=== PATIENT | male | born 1950 | race Caucasian/White ===

== ENCOUNTER 2017-02-10 11:48 | Emergency (ER) | payer MEDICARE ==
[2017-02-10 15:03] VITALS: BP 127/71
--- NOTE | 2017-02-10 15:05 | UC ---
Laceration HPI - HPI Summary HPI Summary: 66 male presents to with complaints of laceration to right cheek that occurred this morning after accidentally rolling out of bed hitting the corner of night stand. Denies any other complaints at this time. No headache, bleeding is controlled. No concern for head injury. No LOC. Minimal swelling and tenderness to area. No problems with vision. Believes last tetanus was less than 5 years ago when it had to be updated. No other complaints at this time. No PMHx. 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 - History Of Current Complaint Chief Complaint: UCLaceration Stated Complaint: RY EYE LACERATION Time Seen by Provider: 02/10/17 14:28 Hx Obtained From: Patient Laceration Location: Face - right zygomatic arch area, right cheek Mechanism Of Injury: Blunt Trauma Onset/Duration: Sudden Onset Severity: Mild Pain Intensity: 3 Pain Scale Used: 0-10 Numeric Aggravating Factors: Nothing Facial Trauma: 1 - laceration - Allergies/Home Medications Allergies/Adverse Reactions: Allergies Allergy/AdvReac Type Severity Reaction Status Date / Time No Known Allergies Allergy Verified 02/10/17 12:59 Home Medications: Home Medications Rosuvastatin Calcium [Crestor] 20 mg BEDTIME 02/10/17 [History Confirmed ] PMH/Surg Hx/FS Hx/Imm Hx - Additional Past Medical History Additional PMH: Denies DM, asthma - Surgical History Surgical History: Yes Surgery Procedure, Year, and Place: Tonsils. Appendix. Stentx1 - Family History Known Family History: Positive: None - Social History Alcohol Use: Weekly Alcohol Amount: 1-2 DRINKS/WEEK Substance Use Type: None Smoking Status (MU): Never Smoked Tobacco - Immunization History Most Recent Influenza Vaccination: NONE 2017 Most Recent Tetanus Shot: believes < 5 years ago Vaccination Up to Date: Yes Review of Systems Constitutional: Negative Skin: Other - laceration cheek ENT: Negative Respiratory: Negative Cardiovascular: Negative Neurovascular: Negative Musculoskeletal: Negative Neurological: Negative All Other Systems Reviewed And Are Negative: Yes Physical Exam Triage Information Reviewed: Yes Appearance: Well-Appearing, No Pain Distress, Well-Nourished Vital Signs: Initial Vital Signs Temp 97.9 F 02/10/17 13:00 Pulse 72 02/10/17 13:00 Resp 16 02/10/17 13:00 BP 139/72 02/10/17 13:00 Pulse Ox 98 02/10/17 13:00 Vital Signs Reviewed: Yes Eyes: Positive: Conjunctiva Clear ENT: Positive: Normal ENT inspection, Hearing grossly normal, Pharynx normal, Nasal drainage Neck: Positive: Supple, Nontender Respiratory: Positive: Chest non-tender, Lungs clear, Normal breath sounds, No respiratory distress, No accessory muscle use Cardiovascular: Positive: RRR, No Murmur, Pulses Normal Musculoskeletal: Positive: Strength Intact, ROM Intact, No Edema, Other: - no crepitus, step off or obvious signs of trauma, no racoon eyes or battles signs Neurological: Positive: Alert Skin: Positive: Other - 1.5cm well approximated linear laceration noted to right zygomatic arch area with no bleeding, .5cm deep, some SQ tissue involvement. Not affecting eye. Minimal tendnerness to area. No crepitus or concern for head injury/fracture. No ecchymosis. mild edema. no bleeding or FB Laceration Repair - Laceration Repair 1 Description: Linear Laceration Size After Repair: Length (cm) - 1.5, Width (mm) - 0, Depth (mm) - .5 Debridement: none Cleansing Completed Via Routine Prep: Yes Closure Material: Skin Adhesive - well approximated, closed very nicely, SteriStrips - 2 Suture Of: Skin, SQ Laceration Course/Dx - Course/Dx Course Of Treatment: due to patient presentation and physcial examination of laceration depth/approximation- Skin adhesive and 2 steri-strips were used to close wound. Closed very nicely. Well approximated without complication. Patient tolerated procedure well. Aware of worsening signs and symptoms, such as infection. Keep clean and dry for atleast 48 hours. Do not pick at. Believe tetanus was updated <5 years ago routinely and wants to call and check with PCP on Sunday. Aware he may need to recieve it on Sunday if it has been greater than 5 years. Aware that if symptoms worsen, opens, bleeds or pain increases suggesting fracture to seek medical attention immediately. At this time no concern for head injury/concussion or facial fracture. Patient did not want CT. Follow up PCP. - Differential Dx - Laceration/Wound Differental Diagnoses: Abrasion, Avulsion, Healing Wound, Hematoma, Laceration Provider Diagnoses: laceration right cheek Discharge - Discharge Plan Condition: Stable Disposition: HOME Patient Education Materials: Laceration (ED), Skin Adhesive Care (ED), Steristrips (ED) Referrals: Carlyle Estrada MD [Primary Care Provider] - Additional Instructions: Keep clean and dry for at least 48 hours. After 48 hours gently rinse quickly, do not submerge in water or keep in water for long periods of time. Avoid swimming. Ice area to decrease swelling. If pain does not improve please seek medical attention for further imaging. Let steri-strips and glue remove themselves, do not pick at or remove yourself. Follow up with PCP. Be sure to check and make sure your tetanus was last updated within 5 years, if not please receive your booster. If symptoms worsen or you develop signs of infection please seek medical attention promptly.
== END 2017-02-10 15:25 | disposition home or self-care (01) ==
LOC: UCCORT 11:48
DX: S01.411A Laceration without foreign body of right cheek and temporomandibular area, initial encounter (principal); W06.XXXA Fall from bed, initial encounter; Y92.013 Bedroom of single-family (private) house as the place of occurrence of the external cause
CPT/HCPCS: 12011; 99202; G0463